=== PATIENT | male | born 1955 | race Asian ===

== ENCOUNTER 2021-09-16 08:01 | Outpatient (AMB) | payer BC, SELFPAY ==
--- NOTE | 2021-09-16 08:07 | UROVISIT ---
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 Patient to have PSA done in 6 months. mvp Fall Screening Do you have a fear of falling?: No Have you had a fall in the last 2 months?: No Do you use an assistive device for ambulation?: No Current Vital Signs Height Height Method Weight Weight Measurement Method Body Mass Index 1.63 m Stated 65.771 kg Estimated by Patient 24.9 09/16/21 08:09 09/16/21 08:09 09/16/21 08:09 09/16/21 08:09 09/16/21 08:09 Office Procedures Uro Level of Care Nursing/Assessment/Reassessment Patient Status: Established Patient Nursing Assessment/Reassessment: Update [facility] data in EMR and Medication Reconciliation Coordination of Care: Ref for ancillary service Established Patient Point Assignment: 35 Uro Telephone call w/Clinical staff: 21-30 min Urology Clinic Office Visit Office Visit Urology Verbal Consent obtained for Telemed Visit: Yes Date of visit:: September 16, 2021 08:01 Allergies & Home Medications: Allergies No Known Allergies Allergy (Verified 03/14/21 11:41) Visit: Reason for visit: [] Office Visit findings: []
[2021-09-16 08:09] VITALS: BMI 24.9
--- NOTE | 2021-09-16 15:37 | URONOTEN_ITS ---
RE: RICHARD SHERIFF : 1955 DATE: 09/16/2021 TELEPHONE ENCOUNTER: Because of emergency mandate, [id number] visit is not possible; therefore, this medical necessary visit is conducted via telephonic communication. CHIEF COMPLAINT: 1. BPH with urinary obstruction and LUTS, on tamsulosin 0.4 mg p.o. daily. 2. Elevated PSA, had biopsy of the prostate. Histology is benign. 3. Prostate gland volume is 51.54 mL. HISTORY OF PRESENT ILLNESS: This is a 65-year-old gentleman. This patient has BPH with urinary obstruction and LUTS. He is on tamsulosin 0.4 mg p.o. daily. The patient had uroflow bladder scan. His Q-max is 9.9 mL per second. Postvoid residual urine is 24 mL and he voided 157 mL. Biopsy was benign. Report of this was discussed with the patient in great detail again. He has no hematuria, dysuria, or urinary tract infection. Past medical history, family history, review of systems, personal history, please refer to the patient's history form dated 09/16/2021. It is in HPI, in EMR. VARIOUS LABS: BUN 19, creatinine 0.9, GFR 60. PSA on 03/08/2021 is 2.27. RECOMMENDATIONS: 1. Continue tamsulosin 0.4 mg p.o. daily. 2. Repeat PSA in 6 months. 3. Office appointment in 6 months after PSA and for digital rectal examination. Ten minutes were spent in counseling and coordination of the care of the patient. DT: 10:04:16 TT: 10:37:00 Ref: - TID: [id number]
== END 2021-09-16 09:30 | disposition home or self-care (01) ==
LOC: HODUROTH 08:01
PROVIDERS: PCP Internal Medicine; Visit Provider Urology

== ENCOUNTER → 2024-06-11 | Outpatient (CLI) | payer MEDICARE, SELFPAY ==
[2024-06-11 08:07] LABS: Collection Type, Urine Clean Catch; Squamous Epithelial Cell,Urine 0 /hpf (0-5)
[2024-06-11 08:41] LABS: Bilirubin,Urine Negative (Negative); Blood,Urine Negative (Negative); Clarity,Urine Clear (Clear/Hazy); Color,Urine Lt-Yellow (Lt Yel-Yel); Glucose, Urine Negative (Negative); Ketones,Urine 1+ (Negative); Leukocyte Esterase,Urine Negative (Negative); Nitrite,Urine Negative (Negative); Protein,Urine Trace (Neg - Trace); RBC,Urine 1 /hpf (0-3); Specific Gravity,Urine 1.022 (1.001-1.035); Urobilinogen,Urine Negative mg/dL (0.0-1.0); WBC,Urine < 1 /hpf (0-5)
[2024-06-11 08:46] LABS: Partial Thromboplastin Time 28.2 Seconds (22.0-36.0); Prothrombin Time 10.5 Seconds (9.0-12.2)
[2024-06-11 09:05] LABS: Creatinine MALB Rnd Ur 144 mg/dL (30-125); Microalbumin, Random Urine < 3 mg/L (0-300)
[2024-06-11 09:31] LABS: Albumin, Serum 4.7 gm/dL (3.4-4.8); Anion Gap 6 (7-16); BUN/Creatinine Ratio 14 Ratio (12-20); Blood Urea Nitrogen 13 mg/dL (9-23); Calcium 9.2 mg/dL (8.3-10.6); Calcium (Corrected) 9.2 mg/dL (8.5-10.1); Carbon Dioxide 26.4 mMol/L (20.0-31.0); Chloride 104 mMol/L (98-107); Creatinine (Component) 0.9 mg/dL (0.6-1.3); Glucose 92 mg/dL (74-106); Osmolality,Calculated 272 (275-295); Phosphorous 3.8 mg/dL (2.4-5.1); Potassium 4.1 mMol/L (3.4-5.1); Sodium 136 mMol/L (136-145); eGFR > 60 See Note
== END | disposition home or self-care (01) ==
LOC: COPL 07:05
PROVIDERS: PCP Internal Medicine; Referring Provider Internal Medicine; Visit Provider Internal Medicine
DX: I10 Essential (primary) hypertension (principal)
CPT/HCPCS: 36415; 80069; 81001; 82043; 82570; 85610; 85730

== ENCOUNTER 2024-07-31 07:40 | Day surgery (SDC) | payer MEDICARE, SELFPAY ==
[2024-07-25 09:25] VITALS: BMI 25.9
[2024-07-25 11:20] LABS: Alanine Aminotransferase 40 U/L (10-49); Albumin, Serum 5.2 gm/dL (3.4-4.8); Albumin/Globulin Ratio 2.2 (1.2-2.2); Alkaline Phosphatase 80 U/L (46-116); Anion Gap 6 (7-16); Aspartate Amino Transferase 26 U/L (0-34); BUN/Creatinine Ratio 24 Ratio (12-20); Bilirubin,Total 0.7 mg/dL (0.3-1.2); Blood Urea Nitrogen 24 mg/dL (9-23); Calcium 9.9 mg/dL (8.3-10.6); Calcium (Corrected) 9.9 mg/dL (8.5-10.1); Carbon Dioxide 27.4 mMol/L (20.0-31.0); Chloride 104 mMol/L (98-107); Estimated Creatinine Clearance 55.4 mL/min (>60); Globulin 2.4 gm/dL (2.3-3.5); Glucose 107 mg/dL (74-106); Osmolality,Calculated 277 (275-295); Potassium 4.5 mMol/L (3.4-5.1); Sodium 137 mMol/L (136-145); Total Protein 7.6 gm/dL (5.7-8.2); eGFR > 60 See Note
[2024-07-31] VITALS (8 sets, daily range): BP systolic 126–146; BP diastolic 60–75; PULSE 65–85; RESP 14–20; TEMP 36.2–36.4; O2SAT 95–99; BMI 26.0
[2024-07-31] MEDS: OXYMETAZOLINE NAS SPRY 0.05% 15 ML BTL 3 SPRAY NASAL (08:55)
[2024-07-31] MEDS: RINGERS LACTATED 1000 ML 1,000 ML 20 ML IV (08:58)
--- NOTE | 2024-07-31 09:58 | PD.SUROPNT ---
Date of Procedure 07/31/24 Pre Op Diagnosis Nasal septal deviation with obstruction Bilateral inferior turbinate hypertrophy Post Op Diagnosis Nasal septal deviation with obstruction Bilateral inferior turbinate hypertrophy Procedure Intranasal septoplasty Bilateral submucous resection of inferior turbinates Findings Patient had a grade 3 septal deviation to the left both cartilaginous and bony. Inferior turbinates are enlarged as well. The nasal tip support was weak prior to doing any surgery and limited amount of cartilaginous excision. Procedure Description Indications: This is a 68-year-old male with chronic nasal congestion despite medical therapy. Treatment options were discussed as well as risk of bleeding infection nasal deformity potential need for further surgery. He understood this and wished to proceed. Patient was transferred the operative suite where he was anesthetized and intubated per LMA. Patient was then sterilely draped and timeout performed. Nasal septum as well as the inferior turbinates were injected with 1% lidocaine with 1 100,000 dilution epinephrine. Approximately 9 cc total used. Caudal rim incision was made on the left side of the nasal septum and the cartilage was weakened as noted above. Mucosal flap was elevated posteriorly over the perpendicular plate. Perpendicular plate was from the quadrangular cartilage and mucosal flap elevated on the right side. Deviated perpendicular plate was incised with double-action scissors and the bony fragments removed with a Brenda forceps. The cartilage is still curving to the right side it was disarticulated from the vomer inferiorly repositioned and sutured in place with interrupted 4-0 Vicryl sutures. The rim incision and mucosal flaps were reapproximated with a 4-0 plain gut suture. The inferior turbinates reduced in submucosal plane with a 2.9 mm turbinate shaver blade. Dissection was performed first on the right side and then on the left side. The entry sites were then cauterized with suction cautery. The cartilage is still trying to shift to the left side to some degree. Quach splints were then coated with antibiotic ointment and inserted and sutured in place with silk suture to try and hold it in position while healing. Anesthesia other (General Per LMA) Pathology / specimen None Estimated Blood Loss 3 Surgeon Trae Grullon DO Surgical Staff Operation Date: 07/31/24 10:15 Case Staff Anesthesiologist: Damian Duarte
--- NOTE | 2024-07-31 10:07 | SUR.PHASEI ---
1007: Pt. AAOx4, vitals stable, breathing unlabored, no complaint of pain or nausea, dressing under nose CDI, no active bleed noted, report received from MD Duarte and Pop COLEMAN.
--- NOTE | 2024-07-31 11:07 | SUR.PHASEII ---
1107: Pt. AAOx4, vitals stable, breathing unlabored, no complaint of pain or nausea, dressing under nose CDI, no active bleed noted, pt. tolerated bites of ice chips well, pt. ambulated to wheelchair with steady gait and no assist, no complications. Gave discharge instructions to the pt. and his ride, both verbalized understanding and had no further questions. Pt. left with all personal belongings.
== END 2024-07-31 11:07 | disposition home or self-care (01) ==
PROVIDERS: PCP Internal Medicine; Referring Provider Otolaryngology; Visit Provider Otolaryngology
PROC: (CPT 30520; principal; 2024-07-31 10:00)
DX: J34.2 Deviated nasal septum (principal); J34.3 Hypertrophy of nasal turbinates
CPT/HCPCS: 30520; 30140; 36415; 80053; 85025; A4217; A4649; J0690; J1100; J2704; J2765; J3010; J3490; J7040; J7120; A9270

== ENCOUNTER → 2024-08-19 | Outpatient (CLI) | payer MEDICARE, SELFPAY ==
[2024-08-19 09:01] LABS: Prostate Specific Antigen 2.96 ng/mL (0-4.00)
== END | disposition home or self-care (01) ==
LOC: COPL 07:16
PROVIDERS: PCP Internal Medicine; Referring Provider Urology; Visit Provider Urology
DX: N40.0 Benign prostatic hyperplasia without lower urinary tract symptoms (principal)
CPT/HCPCS: 36415; 84153

== ENCOUNTER → 2024-08-26 | Outpatient (BNVA) | payer MEDICARE, SELFPAY | END | disposition home or self-care (01) | PROVIDERS: PCP Internal Medicine; Referring Provider Internal Medicine; Visit Provider Urology | DX: N40.1 Benign prostatic hyperplasia with lower urinary tract symptoms (principal); N13.8 Other obstructive and reflux uropathy; Z98.890 Other specified postprocedural states; I10 Essential (primary) hypertension | CPT/HCPCS: 81003; 99212; G0463 ==

== ENCOUNTER → 2024-11-13 | Outpatient (CLI) | payer MEDICARE, SELFPAY ==
[2024-11-13 08:37] LABS: Collection Type, Urine Clean Catch; Squamous Epithelial Cell,Urine 0 /hpf (0-5)
[2024-11-13 08:51] LABS: Basophils % (Auto) 1 % (0-2.5); Eosinophils # (Auto) 1.3 Thou/mm3 (0.0-0.5); Eosinophils % (Auto) 16 % (0-10); Hematocrit 37.3 % (41.0-53.0); Hemoglobin 13.3 g/dL (13.5-16.0); Immature Granulocytes % (Auto) 0 % (0-0); Immature Granulocytes Auto 0.02 Thou/mm3 (0.00-0.00); Lymphocytes # (Auto) 2.7 Thou/mm3 (1.0-4.8); Lymphocytes % (Auto) 32 % (10-50); Mean Corpuscular HGB Conc 35.7 g/dl (31.0-37.0); Mean Corpuscular Hemoglobin 30.7 pg (25.0-35.0); Mean Corpuscular Volume 86 fL (80-100); Monocytes # (Auto) 0.6 Thou/mm3 (0.0-0.8); Monocytes % (Auto) 7 % (0-12); Neutrophils # (Auto) 3.8 Thou/mm3 (1.8-7.7); Neutrophils % (Auto) 45 % (37-80); Nucleated Red Blood Cell % 0 /100 WBC (0); Platelet Count 196 Thou/mm3 (140-440); RDW Standard Deviation 45.7 fL (35.1-43.9); Red Blood Count 4.33 Miln/mm3 (4.50-5.90); White Blood Count 8.5 Thou/mm3 (3.8-10.6)
[2024-11-13 09:21] LABS: Alanine Aminotransferase 19 U/L (10-49); Albumin, Serum 4.8 gm/dL (3.4-4.8); Alkaline Phosphatase 70 U/L (46-116); Anion Gap 8 (7-16); Aspartate Amino Transferase 18 U/L (0-34); BUN/Creatinine Ratio 13 Ratio (12-20); Bilirubin,Total 1.3 mg/dL (0.3-1.2); Blood Urea Nitrogen 12 mg/dL (9-23); Calcium 9.3 mg/dL (8.3-10.6); Calcium (Corrected) 9.3 mg/dL (8.5-10.1); Carbon Dioxide 25.8 mMol/L (20.0-31.0); Cardiac Risk Estimate 3.3 RATIO (4.0-6.7); Chloride 105 mMol/L (98-107); Cholesterol 171 mg/dL (132-200); Creatinine (Component) 0.9 mg/dL (0.6-1.3); Globulin 2.4 gm/dL (2.3-3.5); Glucose 94 mg/dL (74-106); HDL Cholesterol 52 mg/dL (40-60); LDL Cholesterol,Calculated 104 mg/dL (0-130); Osmolality,Calculated 277 (275-295); Potassium 4.2 mMol/L (3.4-5.1); Sodium 139 mMol/L (136-145); Thyroid Stimulating Hormone 1.13 uIU/mL (0.55-4.78); Total Protein 7.2 gm/dL (5.7-8.2); Triglycerides 75 mg/dL (30-150); eGFR > 60 See Note
[2024-11-13 09:59] LABS: Bacteria,Urine Rare; Bilirubin,Urine Negative (Negative); Blood,Urine Negative (Negative); Clarity,Urine Clear (Clear/Hazy); Color,Urine Yellow (Lt Yel-Yel); Glucose, Urine Negative (Negative); Ketones,Urine 1+ (Negative); Leukocyte Esterase,Urine Negative (Negative); Nitrite,Urine Negative (Negative); PH,Urine 6.5 (5.0-7.0); Protein,Urine Trace (Neg - Trace); RBC,Urine 1 /hpf (0-3); Specific Gravity,Urine 1.024 (1.001-1.035); Urobilinogen,Urine Negative mg/dL (0.0-1.0); WBC,Urine < 1 /hpf (0-5)
== END | disposition home or self-care (01) ==
PROVIDERS: PCP Internal Medicine; Referring Provider Internal Medicine; Visit Provider Internal Medicine
DX: I10 Essential (primary) hypertension (principal); E78.5 Hyperlipidemia, unspecified
CPT/HCPCS: 36415; 80053; 80061; 81001; 84443; 85025

== ENCOUNTER → 2025-04-16 | Outpatient (CLI) | payer MEDICARE, SELFPAY ==
[2025-04-16 08:11] LABS: Collection Type, Urine Clean Catch; Squamous Epithelial Cell,Urine 0 /hpf (0-5)
[2025-04-16 08:41] LABS: Basophils # (Auto) 0.1 Thou/mm3 (0.0-0.2); Basophils % (Auto) 1 % (0-2.5); Eosinophils # (Auto) 1.0 Thou/mm3 (0.0-0.5); Eosinophils % (Auto) 12 % (0-10); Hematocrit 36.6 % (41.0-53.0); Hemoglobin 13.2 g/dL (13.5-16.0); Immature Granulocytes Auto 0.02 Thou/mm3 (0.00-0.00); Lymphocytes # (Auto) 2.9 Thou/mm3 (1.0-4.8); Lymphocytes % (Auto) 36 % (10-50); Mean Corpuscular HGB Conc 36.1 g/dl (31.0-37.0); Mean Corpuscular Hemoglobin 31.1 pg (25.0-35.0); Mean Corpuscular Volume 86 fL (80-100); Monocytes # (Auto) 0.6 Thou/mm3 (0.0-0.8); Monocytes % (Auto) 7 % (0-12); Neutrophils # (Auto) 3.6 Thou/mm3 (1.8-7.7); Neutrophils % (Auto) 44 % (37-80); Nucleated Red Blood Cell # 0.00 Thou/mm3 (0.00-0.00); Nucleated Red Blood Cell % 0 /100 WBC (0); Platelet Count 223 Thou/mm3 (140-440); RDW Standard Deviation 45.4 fL (35.1-43.9); Red Blood Count 4.25 Miln/mm3 (4.50-5.90); White Blood Count 8.0 Thou/mm3 (3.8-10.6)
[2025-04-16 08:48] LABS: Glucose Estimated Average 105 mg/dL (80-131); Hemoglobin A1C 5.3 % Hgb (4.8-6.0)
[2025-04-16 08:58] LABS: Alanine Aminotransferase 18 U/L (10-49); Albumin, Serum 4.5 gm/dL (3.4-4.8); Albumin/Globulin Ratio 2.0 (1.2-2.2); Alkaline Phosphatase 65 U/L (46-116); Anion Gap 10 (7-16); Aspartate Amino Transferase 19 U/L (0-34); BUN/Creatinine Ratio 12 Ratio (12-20); Bilirubin,Total 1.0 mg/dL (0.3-1.2); Blood Urea Nitrogen 11 mg/dL (9-23); Calcium 9.7 mg/dL (8.3-10.6); Calcium (Corrected) 9.7 mg/dL (8.5-10.1); Carbon Dioxide 24.6 mMol/L (20.0-31.0); Cardiac Risk Estimate 3.4 RATIO (4.0-6.7); Chloride 107 mMol/L (98-107); Cholesterol 186 mg/dL (132-200); Creatinine (Component) 0.9 mg/dL (0.6-1.3); Globulin 2.2 gm/dL (2.3-3.5); Glucose 96 mg/dL (74-106); HDL Cholesterol 54 mg/dL (40-60); LDL Cholesterol,Calculated 117 mg/dL (0-130); Osmolality,Calculated 282 (275-295); Potassium 3.7 mMol/L (3.4-5.1); Sodium 142 mMol/L (136-145); Thyroid Stimulating Hormone 1.58 uIU/mL (0.55-4.78); Total Protein 6.7 gm/dL (5.7-8.2); Triglycerides 75 mg/dL (30-150); Uric Acid 6.8 mg/dL (3.7-9.2); eGFR > 60 See Note
[2025-04-16 09:05] LABS: Vitamin B12 510 pg/mL (211-911); Vitamin D 25 Hydroxy Total 48.2 ng/mL (7.3-40.2)
[2025-04-16 09:12] LABS: Bilirubin,Urine Negative (Negative); Blood,Urine Negative (Negative); Clarity,Urine Clear (Clear/Hazy); Color,Urine Lt-Yellow (Lt Yel-Yel); Glucose, Urine Negative (Negative); Ketones,Urine Negative (Negative); Leukocyte Esterase,Urine Negative (Negative); Nitrite,Urine Negative (Negative); PH,Urine 6.5 (5.0-7.0); Protein,Urine Negative (Neg - Trace); RBC,Urine 2 /hpf (0-3); Specific Gravity,Urine 1.020 (1.001-1.035); Urobilinogen,Urine Negative mg/dL (0.0-1.0); WBC,Urine 1 /hpf (0-5)
== END | disposition home or self-care (01) ==
LOC: COPL 06:43
PROVIDERS: PCP Internal Medicine; Referring Provider Internal Medicine; Visit Provider Internal Medicine
DX: I10 Essential (primary) hypertension (principal); E78.5 Hyperlipidemia, unspecified
CPT/HCPCS: 36415; 80053; 80061; 81001; 82306; 82607; 83036; 84443; 84550; 85025